=== PATIENT | female | born 1965 | race Caucasian/White ===

== ENCOUNTER → 2017-11-29 13:59 | Outpatient (CLI) | payer OTHER, SELFPAY ==
--- NOTE | 2017-11-29 14:02 | HPBI_ITS ---
MAMMOGRAPHY - BILATERAL SCREENING REASON FOR EXAM: Female, 52 years old. Routine annual screening examination. PERTINENT HISTORY: Aunt with breast cancer. Prior left stereotactic breast biopsy. TECHNIQUE: Digital bilateral breast douglas (3D mammographic acquisition) in the CC and MLO projections. 2-D mediolateral oblique (MLO) and craniocaudad (CC) views of both breasts were obtained. CAD: Full Field Digital Mammography with Computer Added Detection was performed. COMPARISON: Comparison is made with prior examination dated November 08, 2016 and September 27, 2015. FINDINGS: Breast Composition: The breasts are extremely dense, which lowers the sensitivity of mammography. There are no dominant masses or suspicious calcifications. No other significant abnormalities are identified. There has been no significant change since the prior study. HPBI/SCREENING MAMM (CAD), BILAT IMPRESSION: Stable bilateral screening mammogram. Yearly follow-up mammogram recommended. (A) ASSESSMENT CATEGORY: BIRADS Category 1: Negative. A letter regarding these results will be sent to the patient by the facility within 30 days. Approximately 10% of breast cancers are not detected by mammography. A normal mammogram should not delay biopsy of a clinically suspicious abnormality. [id number] Electronically Signed: Trace Gunn MD at 15:22 EDT Tel [phone], Service support ,
== END ==
PROVIDERS: Family Provider Preventive Medicine Occupational Medicine; PCP Preventive Medicine Occupational Medicine; Visit Provider Preventive Medicine Occupational Medicine
DX: Z12.31 Encounter for screening mammogram for malignant neoplasm of breast (principal)
CPT/HCPCS: 77063; 77067

== ENCOUNTER 2018-04-25 13:00 | Outpatient (RCR) | payer OTHER, SELFPAY ==
--- NOTE | 2018-03-27 11:28 | HP.PTEVAL_ITS ---
Patient's Visit Information KING LAKE is a 53 year old F referred to Physical Therapy by Dany Saez with a diagnosis of CHRONIC PLANTAR fasciitis LEFT. Date of Evaluation: 03/27/18 Physical Therapist: Kavita Rodríguez - Visit Plan Frequency: 2-3x /Week Duration: 4-6 Weeks Plan: AQUATIC THERAPY AND LAND THERAPY FOR POSTURE CORRECTION/STRENGTHENING, INSTRUCTION IN APPROPRIATE BODY MECHANICS AND ACTIVITY MODIFICATIONS. DLS STARTING WITH A NEUTRAL SPINE. ASHLEY LE ROM, STRETCHING AND STRENGTHENING. HEP INSTRUCTION. LEFT FOOT US AND STM. 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 SOMETIMES CAN BE 10 TO 12 HOURS ON FEET AND SOMETIMES 8 HOURS AT A DESK. Disability: NO. Present symptoms: ARCH AND HEEL OF LEFT FOOT. ALSO HAS IT IN THE RIGHT FOOT BUT NOT BAD. PATIENT REPORTS SHE HAS HAD SOME TINGLING UP INTO HER TOES AND THE SOLE OF HER FOOT ON THE LEFT LATELY. WE ARE GOING TO FOCUS ON HER LEFT FOOT TODAY. Present since: OVER A YEAR. Pain Scale: WORST 10/10, LEAST 0/10. Currently: 2/10. Commenced as a result of: PATIENT RELATES THE ONSET OF HER FOOT PAIN TO WORKING ON HER FEET ALOT. Symptoms at onset: LEFT HEEL. Worse: FIRST THING IN THE MORNING. THE MORE I AM ON IT THE WORSE IT GETS. Better: [place]. Disturbed sleep: YES. Previous history/Previous treatment: HOME STRETCHES GIVEN BY DR. SAEZ. 6 WEEKS IN AN AIR CAST. CORTISONE SHOT DECEMBER 2017. ICING. ORTHOTICS. Gait: LIMPING WITH PROLONGED WEIGHTBEARING. Accidents: NO. Unexplained weight loss: NO. Imaging: ASHLEY FOOT X-RAYS - PATIENT REPORTS NO HEEL SPURS. PMH: MICRODISCECTOMY L5 S1 6 YEARS AGO - TAKES A MUSCLE RELAXER FOR BACK EVERY DAY. TAKES A SLEEP AID. HIGH CHOLESTEROL. ACID REFLUX, ASTHMA. TOTAL HYSTERECTOMY. CERVICAL HNP - NO NECK SURGERY. OTHER: PATIENT REPORTS DR. SAEZ HAS RECOMMENDED SURGERY ON HER LEFT FOOT. PATIENT REPORTS SHE DOES NOT WANT TO HAVE SURGERY YET BECAUSE SHE HAS VACATION PLANS, SHE IS BUSY AT WORK AND HER DAUGHTER IS GETTING IN MAY. SHE WANTS TO TRY EVERYTHING BEFORE SHE DOES SURGERY. SHE REPORTS HE THEN REFERRED HER TO PT. - Objective Sitting/Standing Posture: POOR. Lordosis: NORMAL. Lateral shift: NO. Relevant shift: N/A. Active Correction of posture: NE. PASSIVE CORRECTION OF SITTING POSTURE SEEMS TO HAVE A POSITIVE EFFECT ON ASHLEY FOOT PAIN. Other Observations: INDEP GAIT INTO PT LIMPING ON THE LEFT LE. Motor deficit: ASHLEY LE STRENGTH 5/5 WITH MMT EXCEPT PATIENT IS UNABLE TO HEEL RAISE LEFT. Sensory deficit: NO. ROM deficit: ASHLEY LE'S WFL EXCEPT LEFT ANKLE DORSIFLEX -5 DEG COMPARED TO RIGHT +5 DEG. Reflexes: 2/3 ASHLEY LE. Dural Signs: NEGATIVE ASHLEY LE' S. Lumbar mvmt loss: flex - NIL - TIGHTENS MY HEELS. ext - MIN. R SG - MIN. L SG - MIN. Core strength: POOR. Palpation: TENDERNESS WITH PALPATION OF THE LUMBOSACRAL REGION, SI JOINTS. PATIENT HAS INCREASED MUSCLE TONE ASHLEY PARASPINALS. RIGHT ARCH OF FOOT IS MILDLY TENDER AND LEFT ARCH IS SEVERLY TENDER. - Goals Goal 1:: DECREASE C/O LEFT FOOT PAIN Goal Time Frame: 4-6 Weeks Goal 2:: IMPROVE STANDING, WALKING, ADL, WORK AND SLEEP FUNCTION Goal Time Frame: 4-6 Weeks Goal 3:: INSTRUCT IN PROPHYLAXIS Goal Time Frame: 4-6 Weeks - Rehabilitation Potential Rehabilitation Potential: Fair - Anticipated Interventions Patient/Client Instruction: Educate patient on: Condition, Plan of Care, Risk Factors, Benefits of Fitness Program For the Purpose of:: To improve self management Therapeutic Exercise to Include: Strength training, Body mechanics, Postural training, Flexibilty training, In an aquatic setting, Passive ROM, Active ROM For the Purpose of:: To decrease pain, To increase ROM, To improve nutrient delivery to tissue, To improve muscle performance and motor function, To improve ability to perform ADL's, To increase tolerance to activity/condition/ position, To improve ability of physical actions for home/community/work/leisure , To improve gait and locomotor functions Manual Therapy Techniques to Include: Soft tissue mobilization For the Purpose of:: To decrease pain, To increase ROM Ultrasound (thermal/non thermal): Yes For the Purpose of:: To decrease pain, To decrease swelling/inflammation, To increase ROM Thank you for the opportunity to evaluate your patient. For Medicare and Medicare HMO plans, please review the plan of care and approve it. It will need to be FAXED BACK to us at [phone] for Medicare purposes. Please let me know if there are questions or concerns regarding this plan of care. Physician Signature: Date:
--- NOTE | 2018-04-25 13:35 | HP.PTDCSUM ---
HP - PT D/C Summary It has been my pleasure to treat KING LAKE under orders from Dany Aly, for the diagnosis of CHRONIC PLANTAR fasciitis LEFT for a total of 10 visit(s). Discharge Date: 04/25/18 Please see the following information for a summary of their discharge status. - Subjective Subjective: PATIENT REPORTS IF SHE BABY'S IT IT IS GREAT BUT IF SHE TRIES TO DO NORMAL ACTIVITY SHE GETS UP TO 10/10 PAIN AT ITS WORST. PATIENT REPORTS THAT SHE THINKS SHE IS GOING TO HAVE TO EVENTUALLY HAVE THE LEFT FOOT SURGERY. REPORTS HER BUSY WORK SEASON IS COMING UP AND SHE WILL BE ON HER FEET A LOT. PATIENT REPORTS SHE FEEL LIKE HER BACK IS BETTER SINCE STARTING THERAPY AND HER BALANCE IS BETTER TOO. REPORTS DR. ALY TOLD HER TO COME BACK WHEN SHE IS READY TO HAVE THE SURGERY. PATIENT REPORTS SHE WANTS TO HOLD OFF ON ANY MORE PT AT THIS POINT BECAUSE SHE IS PROBABLY GOING TO DO THE SURGERY IN [place]. REPORTS SHE IS DOING HER HEP AND PLANS TO CONTINUE. REPORTS SHE HOPES TO GET ACCESS TO A POOL AND CONTINUE THE POOL EX'S SHE HAS LEANED ON HER OWN. - Pain Lumbar Spine Pain Intensity (Out of 10): 0 Left foot Pain Intensity (Out of 10): 4 - Overall Improvement % Improvement: 30 - Objective Objective/Function: PATIENT HAS ONLY MADE MINIMAL PROGRESS TOWARD THE PT GOALS BUT SHE IS INDEP WITH A WATER EX PROGRAM AND HOME STRETCHES. LEFT ANKLE DORSIFLEXION MEASURES -3 DEG TODAY. - Goals Goal 1:: DECREASE C/O LEFT FOOT PAIN Goal Progress: Not Progressing Goal 2:: IMPROVE STANDING, WALKING, ADL, WORK AND SLEEP FUNCTION Goal Progress: Not Progressing Goal 3:: INSTRUCT IN PROPHYLAXIS Goal Progress: Progressing - Plan Plan: DISCHARGE AT PATIENTS REQUEST. - D/C Information If there are questions or concerns regarding this patient's physical therapy, please feel free to call me at [phone]. Thank you for the referral of this patient. Sincerely, Kavita Rodríguez
== END 2018-04-25 19:00 | disposition home or self-care (01) ==
LOC: PT 13:00
PROVIDERS: Family Provider Preventive Medicine Occupational Medicine; PCP Preventive Medicine Occupational Medicine; Visit Provider Podiatrist Foot & Ankle Surgery
DX: M72.2 Plantar fascial fibromatosis (principal)
CPT/HCPCS: 97110; 97113; 97162; 97164; 97530

== ENCOUNTER → 2018-12-31 15:19 | Outpatient (CLI) | payer OTHER, SELFPAY ==
--- NOTE | 2018-12-31 15:22 | BI_ITS ---
MAMMOGRAPHY - BILATERAL SCREENING REASON FOR EXAM: Female, 53 years old. Routine annual screening examination. PERTINENT HISTORY: Aunt with breast cancer. Remote left stereotactic breast biopsy. TECHNIQUE: Digital bilateral breast douglas (3D mammographic acquisition) in the CC and MLO projections. 2-D mediolateral oblique (MLO) and craniocaudad (CC) views of both breasts were obtained. CAD: Full Field Digital Mammography with Computer Added Detection was performed. COMPARISON: Comparison is made with prior study dated November 29, 2017 and June 08, 2017. FINDINGS: Breast Composition: The breasts are extremely dense, which lowers the sensitivity of mammography. There are no dominant masses or suspicious calcifications. Stable small bilateral axillary lymph nodes. A tissue clip marker is once again seen in the retroareolar region of the left breast. No other significant abnormalities are identified. There has been no significant change since the prior study. BI/SCREENING MAMM (CAD), BILAT IMPRESSION: Stable bilateral screening mammogram. Yearly follow-up mammogram recommended. (A) ASSESSMENT CATEGORY: BIRADS Category 2: Benign. A letter regarding these results will be sent to the patient by the facility within 30 days. Approximately 10% of breast cancers are not detected by mammography. A normal mammogram should not delay biopsy of a clinically suspicious abnormality. [id number] Electronically Signed: Trace Gunn, at 8:07 EDT , Service support ,
== END ==
PROVIDERS: Family Provider Preventive Medicine Occupational Medicine; PCP Preventive Medicine Occupational Medicine; Referring Provider Preventive Medicine Occupational Medicine; Visit Provider Preventive Medicine Occupational Medicine
DX: Z12.31 Encounter for screening mammogram for malignant neoplasm of breast (principal)
CPT/HCPCS: 77063; 77067

== ENCOUNTER → 2020-09-13 08:28 | Outpatient (CLI) | payer OTHER, SELFPAY ==
--- NOTE | 2020-09-13 08:30 | BI_ITS ---
MAMMOGRAPHY - BILATERAL SCREENING REASON FOR EXAM: Female, 55 years old. Routine annual screening examination. PERTINENT HISTORY: Aunt with breast cancer. Remote left stereotactic breast biopsy. TECHNIQUE: Digital bilateral breast dixon (3D mammographic acquisition) in the CC and MLO projections. 2-D mediolateral oblique (MLO) and craniocaudad (CC) views of both breasts were obtained. CAD: Full Field Digital Mammography with Computer Added Detection was performed. COMPARISON: Comparison is made with prior study dated 12/31/2018 and 11/29/2017. FINDINGS: Breast Composition: The breasts are extremely dense, which lowers the sensitivity of mammography. There are no dominant masses or suspicious calcifications. A Sterotactic history: As seen in the retroareolar region of the left breast. Stable small benign-appearing bilateral axillary lymph nodes. No other significant abnormalities are identified. There has been no significant change since the prior study. BI/SCREEN MAMM (CAD) W/DIXON BILAT IMPRESSION: Stable bilateral screening mammogram. Yearly follow-up mammogram recommended. (A) ASSESSMENT CATEGORY: BIRADS Category 2: Benign. A letter regarding these results will be sent to the patient by the facility within 30 days. Approximately 10% of breast cancers are not detected by mammography. A normal mammogram should not delay biopsy of a clinically suspicious abnormality. [id number] Electronically Signed: Trace Gunn, at 8:59 EST , Service support ,
== END ==
PROVIDERS: PCP Preventive Medicine Occupational Medicine; Referring Provider Preventive Medicine Occupational Medicine; Visit Provider Preventive Medicine Occupational Medicine
DX: Z12.31 Encounter for screening mammogram for malignant neoplasm of breast (principal)
CPT/HCPCS: 77063; 77067

== ENCOUNTER 2021-04-07 08:00 | Outpatient (RCR) | payer OTHER, SELFPAY ==
--- NOTE | 2021-03-23 15:48 | HP.PTEVAL ---
Patient's Visit Information KING LAKE is a 56 year old F referred to Physical Therapy by Dr. Jose Bloom DO with a diagnosis of LUMBAR DDD. Date of Evaluation: 03/23/21 Physical Therapist: Dontrell Oh, PT, Cert MDT, OCS - Visit Plan Frequency: 2x /Week Duration: 4 Weeks Plan: PT INTERVETIONS MODALTIES ,EMA EX'S, GRADED DLS AND POSTURAL EX'S - Subjective This 56 y/o female presents to physical therapy with LBP with radicular symptoms . Patient had h/o lumbar discectomy 10 YEARS ago. Patient ~ 4weeks left leg then right leg few days later with pain and paresthesia. Seen DR provided gabepetin and flexeral . Patient had x-rays DDD also recommended PT. Patient major concerns is paresthesia in right. Pain located right hams to calf. Aggravating sitting, walking, standing ,bending. Alleviating factors rets and MEDS. Pain is described as sharp pain. Coughing/sneezing-. Bowel/bladder -. Symptoms affects sleeping. But ,there is no abnormal night pain. Patient pain affects QOL and function. VOCATION: [employer]. SOCIAL: single - Objective POSTURE: mild forward posture. NEURO: c/o paresthesia right leg ,reflexes L3-4,L4-5,L5-S1 3/3. GAIT: reciprocal pattern. SYMMTRIES: align. PALAPTION: intact. +ANR. LUMBAR ROM: flexion min loss pain hamstring, extension mod loss pain ,side glides min loss pain. MMT:right quads 4-/5 with + SLR hip flexion 4-/5,hams/ankle 5/5. FLEXABILITY: HAMS MOD tight right leg with pain - Special Tests L/S Slump test left side: Negative L/S Left Straight Leg Raise: Negative L/S Right Straight Leg Raise: Positive Lumbar Standing: Flexion - Mechanical Response: No effect Lumbar Standing: Flexion - Symptoms During Testing: Increases Lumbar Standing: Flexion - Symptoms After Testing: Worse Comments:: hamstring Lumbar Standing: Extension - Symptoms During Testing: Increases Lumbar Standing: Extension - Symptoms After Testing: Worse Comments:: hamstring Lumbar Standing: Right Side Glides - Mechanical Response: No effect Lumbar Standing: Right Side [place] - Symptoms During Testing: No effect Lumbar Standing: Right Side [place] - Symptoms After Testing: No effect Lumbar Standing: Left Side [place] - Mechanical Response: No effect Lumbar Standing: Left Side [place] - Symptoms During Testing: No effect Lumbar Standing: Left Side [place] - Symptoms After Testing: No effect Lumbar Lying: Flexion - Mechanical Response: No effect Lumbar Lying: Flexion - Symptoms During Testing: Increases Lumbar Lying: Flexion - Symptoms After Testing: Worse Comments:: hastrimsttring Lumbar Lying: Extension - Mechanical Response: No effect Lumbar Lying: Extension - Symptoms During Testing: Centralizing Lumbar Lying: Extension - Symptoms After Testing: Better Comments:: increases back ,better hamstring NE with paresthesia - Goals Goal 1:: I with HEP Goal Time Frame: 4-6 Weeks Goal 2:: Improve posture/body mechanics for ADLS' Goal 3:: Decrease lumbar pain and radicular symptoms by 50% or > to improve function and gait Goal Time Frame: 4-6 Weeks Goal 4:: Patient to improve lumbar ROM for function of recovery Goal Time Frame: 4-6 Weeks Goal 5:: Patient to improve back owestry score by 5 points > to improve function. Goal Time Frame: 4-6 Weeks - Rehabilitation Potential Physical Therapy Diagnosis: Patient possibly has lumbar disc derangement below knee with h/o HNP in past ,with decrease ROM with pain, pain with test movements ,+ SLR ,better with extension and posture correction benefit from skilled PT Rehabilitation Potential: Good - Anticipated Interventions Patient/Client Instruction: Educate patient on: Condition, Plan of Care For the Purpose of:: To decrease pain, To decrease swelling/inflammation, To improve muscle performance and motor function, To improve ability to perform ADL's, To increase tolerance to activity/condition/position, To improve ability of physical actions for home/community/work/leisure, To decrease soft tissue restriction, To increase flexibility/ROM, To reduce risk of recurrence, To improve ability to perform tasks related to life management Therapeutic Exercise to Include: Strength training, Body mechanics, Postural training, Active ROM, Dynamic Lumbar Stabilization For the Purpose of:: To decrease pain, To increase ROM, To improve muscle performance and motor function, To improve ability to perform ADL's, To increase tolerance to activity/condition/position, To improve ability of physical actions for home/community/work/leisure, To improve health of tissue, To decrease soft tissue restriction, To increase flexibility/ROM, To reduce risk of recurrence, To improve ability to perform tasks related to life management TENS: Yes IF ES: Yes Cryotherapy (ice pack, ice massage): Yes Thermo therapy (hot pack): Yes Ultrasound (thermal/non thermal): Yes For the Purpose of:: To increase ROM, To improve nutrient delivery to tissue, To increase oxygenation perfusion, To improve health of tissue, To decrease soft tissue restriction Thank you for the opportunity to evaluate your patient. For Medicare and Medicare HMO plans, please review the plan of care and approve it. It will need to be FAXED BACK to us at [phone] for Medicare purposes. For Medicare only, by signing this I certify the plan of care. Please let me know if there are questions or concerns regarding this plan of care. Physician Signature: Date:
--- NOTE | 2021-06-23 07:14 | HP.PT.NRP ---
KING LAKE was seen in my office for initial evaluation on 03/23/21. The following Plan of Care was established for this patient: Initial Frequency: 2x /Week Initial Duration: 4 Weeks Patient/Client Instruction: Educate patient on: Condition, Plan of Care For the Purpose of:: To decrease pain, To decrease swelling/inflammation, To improve muscle performance and motor function, To improve ability to perform ADL's, To increase tolerance to activity/condition/position, To improve ability of physical actions for home/community/work/leisure, To decrease soft tissue restriction, To increase flexibility/ROM, To reduce risk of recurrence, To improve ability to perform tasks related to life management Therapeutic Exercise to Include: Strength training, Body mechanics, Postural training, Active ROM, Dynamic Lumbar Stabilization For the Purpose of:: To decrease pain, To increase ROM, To improve muscle performance and motor function, To improve ability to perform ADL's, To increase tolerance to activity/condition/position, To improve ability of physical actions for home/community/work/leisure, To improve health of tissue, To decrease soft tissue restriction, To increase flexibility/ROM, To reduce risk of recurrence, To improve ability to perform tasks related to life management TENS: Yes IF ES: Yes Cryotherapy (ice pack, ice massage): Yes Thermo therapy (hot pack): Yes Ultrasound (thermal/non thermal): Yes For the Purpose of:: To increase ROM, To improve nutrient delivery to tissue, To increase oxygenation perfusion, To improve health of tissue, To decrease soft tissue restriction This patient was last seen in our office . Pertinent comments regarding their Physical therapy will appear below: Patient seen for back pain conts to have lower leg symptoms recommend possible MRI At this point I will be discontinuing this patient from physical therapy. I would be happy to see this patient again in the future if found appropriate by the physician. Thank you! Dontrell Oh, PT, Cert MDT, OCS Balance/Gait/Functional tests - Balance/Special Test Scores Oswestry Low Back Score: 6
== END 2021-04-07 19:00 | disposition home or self-care (01) ==
LOC: PT 08:00
PROVIDERS: PCP Preventive Medicine Occupational Medicine; Referring Provider Preventive Medicine Occupational Medicine; Visit Provider Preventive Medicine Occupational Medicine
DX: M51.36 Other intervertebral disc degeneration, lumbar region (principal)
CPT/HCPCS: 97014; 97035; 97162; 97530; G0283

== ENCOUNTER 2021-09-07 10:30 | Outpatient (RCR) | payer OTHER, SELFPAY ==
--- NOTE | 2021-08-08 17:17 | HP.PTEVAL_ITS ---
Patient's Visit Information KING LAKE is a 56 year old F referred to Physical Therapy by Dr. Wagner Gutierrez DO with a diagnosis of HNP lumbar, ortho aftercare. Microdiscectomy 07/17/21. Date of Evaluation: 08/08/21 Physical Therapist: Jeevan Falcon, ARNULFOT, OCS, CSCS - Visit Plan Frequency: 3x /Week Duration: 4-6 Weeks Plan: 3x/week for 4 weeks for. 1. yoga flows for low back ROM including ext, flexion and rotation to HEP. 2. rollout thoracic paraspinals and HS and stretch HS and hip flexors to HEP. 3. Core strength mat to HEP. 4. General strength to HEP as tolerated. - Subjective Microdiscectom L5 2009. 07/17/21 had microdiscectomy L5s1. Symptoms prior to surgery was numbness in R buttocks to foot. It is still numb but not as bad. Walking makes it more numb. Also had pain before in the R LB prior and still does. This week is 6/10 when she is up and moving, 0/10 lying down and at rest. Has done a lot of driving and walking at [employer] today and it is sore. Willl lie down tonight. Noweakness but gets tight posterior calf at times. Sleep is OK. On Trazadol at night and sleeps fine. 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 Basic ADLs are all OK and easy. No hobbies, stopped bowling last year for other reasons. Spends free time talking to kids, walking. No regular exercises. No exercise currently. - Pain R LBP/leg Pain Intensity (Out of 10): 3 Pain Intensity Range: 0, 8 - Objective Walks normal albeit slow but I back to PT eval room I. Transfers are I bed and chair. Steps are reciprocal without rail and I, no obvious weakness. Incsiion is central in LB and healing well , dry and no excessive redness, heat or swelling. Tender to palpation slightly over incision and moderately in Thoracic parspinals lower portion R>L. Lumbaar ROM ext mod limited and slightly painful, flexion min limited and stretchy tight. SB min limited and no pain but feels tight. Thoracic spine shows some kyphosis. reflexes patella and achilles 2/3. Sensation LE WNL to gross light touch buyt feels numb outside R leg L5s1 dermatome. Strength LE 4/5 B without myotomal abnormalities. Max tightness in HS with slight + slump and SLR r. Hip flexors min tight. Core strength 3 flexion and 3 ext. - Balance/Special Test Scores Functional Gait Assessment Score: 30 % Disability: 0 Oswestry Low Back Score: 15 - Goals Goal 1:: L/S aROM WFL without hesitation or pain Goal Time Frame: 4-6 Weeks Goal 2:: I approp HEP for core strength, Upper leg strateches and LB ROM Goal Time Frame: 4-6 Weeks Goal 3:: Pain abolished in leg and 1/10 at worst in LB Goal Time Frame: 4-6 Weeks Goal 4:: Return to work without incrreasing pain Goal Time Frame: 4-6 Weeks Goal 5:: pt feel 90% back to normal Goal Time Frame: 4-6 Weeks - Rehabilitation Potential Physical Therapy Diagnosis: Tightness and pain limiting activity from recent suki k surgery. Rehabilitation Potential: Good - Anticipated Interventions Patient/Client Instruction: Educate patient on: Condition, Plan of Care For the Purpose of:: To decrease pain, To increase ROM, To improve muscle performance and motor function, To increase tolerance to activity/condition/position, To improve ability of physical actions for home/community/work/leisure Therapeutic Exercise to Include: Strength training, Postural training, Flexibilty training, Passive ROM, Active ROM, Dynamic Lumbar Stabilization For the Purpose of:: To decrease pain, To increase ROM, To improve nutrient delivery to tissue, To improve muscle performance and motor function, To increase tolerance to activity/condition/position, To improve ability of physical actions for home/community/work/leisure Manual Therapy Techniques to Include: Passive ROM, Soft tissue mobilization For the Purpose of:: To increase ROM, To improve nutrient delivery to tissue, To increase tolerance to activity/condition/position Thank you for the opportunity to evaluate your patient. For Medicare and Medicare HMO plans, please review the plan of care and approve it. It will need to be FAXED BACK to us at [phone] for Medicare purposes. For Medicare only, by signing this I certify the plan of care. Please let me know if there are questions or concerns regarding this plan of care. Physician Signature : Date:
--- NOTE | 2021-09-07 10:47 | HP.PTDCSUM ---
It has been my pleasure to treat [place] referred by Dr. Wagner Gutierrez DO, with the diagnosis of HNP lumbar, ortho aftercare. Microdiscectomy 07/17/21 for a total of 11 visit(s). Discharge Date: 09/07/21 Please see the following information for a summary of their discharge status. Subjective: Much better. the stretches and yoga poses really helped as well as pulling on band. Sleep is pretty good. Numbness is no changed in L buttock and leg since February.Not much pain this week...to 2/10 if works too hard. Only avoiding lifting at work. 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 R LBP/leg Pain Intensity (Out of 10): Unrated % Improvement: 90 Objective/Function: L/s AROM ext normal, flexion normal , SB and rotations normal. Jogs up steps easily reciprocally. Walks normal. Numbness in L LE persists without change. Goal 1:: L/S aROM WFL without hesitation or pain Goal Progress: Goal Met Goal 2:: I approp HEP for core strength, Upper leg strateches and LB ROM Goal Progress: Goal Met Goal 3:: Pain abolished in leg and 1/10 at worst in LB Goal Progress: to 2/10 at times. Goal 4:: Return to work without incrreasing pain Goal Progress: Goal Met Goal 5:: pt feel 90% back to normal Goal Progress: Goal Met Plan: d/c to [facility] If there are questions or concerns regarding this patient's physical therapy, please feel free to call me at [phone]. Thank you for the referral of this patient. Sincerely, Jeevan Falcon, DPT, OCS, CSCS Balance/Gait/Functional tests - Balance/Special Test Scores Functional Gait Assessment Score: 30 % Disability: 0 Oswestry Low Back Score: 7
== END 2021-09-07 19:00 | disposition home or self-care (01) ==
LOC: PT 10:30
PROVIDERS: PCP Preventive Medicine Occupational Medicine; Referring Provider Orthopaedic Surgery Orthopaedic Surgery of the Spine; Visit Provider Orthopaedic Surgery Orthopaedic Surgery of the Spine
DX: M51.26 Other intervertebral disc displacement, lumbar region (principal); Z47.89 Encounter for other orthopedic aftercare
CPT/HCPCS: 97110; 97140; 97161; 97164

== ENCOUNTER 2021-11-03 08:39 | Outpatient (CLI) | payer BC, SELFPAY ==
--- NOTE | 2021-11-03 08:41 | BI_ITS ---
MAMMOGRAPHY - BILATERAL SCREENING REASON FOR EXAM: Female, 56 years old. Routine annual screening examination. PERTINENT HISTORY: Aunt with breast cancer. Prior left stereotactic breast biopsy. TECHNIQUE: Digital bilateral breast dixon (3D mammographic acquisition) in the CC and MLO projections. 2-D mediolateral oblique (MLO) and craniocaudad (CC) views of both breasts were obtained. CAD: Full Field Digital Mammography with Computer Added Detection was performed. COMPARISON: Comparison is made with prior study dated 09/13/2020 and 12/31/2018. FINDINGS: Breast Composition: The breasts are extremely dense, which lowers the sensitivity of mammography. There are no dominant masses or suspicious calcifications. A tissue clip marker is seen in the retroareolar region of the left breast Stable small benign appearing bilateral axillary lymph nodes. No other significant abnormalities are identified. There has been no significant change since the prior study. BI/SCRN MAMM (CAD)W/DIXON BILAT IMPRESSION: Stable bilateral screening mammogram. Yearly follow-up mammogram recommended. (A) ASSESSMENT CATEGORY: BIRADS Category 2: Benign. A letter regarding these results will be sent to the patient by the facility within 30 days. Approximately 10% of breast cancers are not detected by mammography. A normal mammogram should not delay biopsy of a clinically suspicious abnormality. [id number] Electronically Signed: Trace Gunn MD at 10:03 EST ,
== END 2021-11-03 23:59 | disposition home or self-care (01) ==
LOC: OPBI 08:40
PROVIDERS: PCP Preventive Medicine Occupational Medicine; Visit Provider Student in an Organized Health Care Education/Training Program
DX: Z12.31 Encounter for screening mammogram for malignant neoplasm of breast (principal)
CPT/HCPCS: 77063; 77067

== ENCOUNTER → 2022-11-26 | Outpatient (CLI) | payer OTHER, SELFPAY ==
--- NOTE | 2022-11-26 08:24 | BI_ITS ---
MAMMOGRAPHY - BILATERAL SCREENING 3-D TOMOSYNTHESIS REASON FOR EXAM: Female, 57 years old. Routine screening PERTINENT HISTORY: Aunt with breast cancer.. Remote stereotactic biopsy TECHNIQUE: 2-D mammograms and 3-D Tomosynthesis of the breast (s) were performed. CAD was performed. COMPARISON: 09/13/2020 FINDINGS: The breast composition is heterogeneously dense that can obscure small breast masses. Scattered benign calcifications are seen. No dense spiculated masses or suspicious microcalcifications are identified. No architectural distortion is identified. There is no skin thickening or retraction. There has been no significant change since the prior study. BI/SCRN MAMM (CAD)W/DIXON BILAT IMPRESSION: No mammographic signs of malignancy. Routine yearly mammograms recommended. ASSESSMENT CATEGORY: BIRADS Category 2: Benign. A letter regarding these results will be sent to the patient by the facility within 30 days. FOLLOW UP RECOMMENDATION: Yearly follow up mammogram recommended. (A) Approximately 10% of breast cancers are not detected by mammography. A normal mammogram should not delay biopsy of a clinically suspicious abnormality. Electronically Signed: Gray Madrigal MD at 9:14 EDT ,
== END | disposition home or self-care (01) ==
LOC: OPBI 08:22
PROVIDERS: PCP Preventive Medicine Occupational Medicine; Referring Provider Preventive Medicine Occupational Medicine; Visit Provider Preventive Medicine Occupational Medicine
DX: Z12.31 Encounter for screening mammogram for malignant neoplasm of breast (principal)
CPT/HCPCS: 77063; 77067